=== PATIENT | female | born 2000 | race Caucasian/White ===

== ENCOUNTER 2023-07-06 08:53 | Emergency (ER) | payer MEDICAID ==
[2023-07-06] MEDS: Take Home: Amoxicillin 875 MG Tab, 2 Tab Pack PO ONE (09:13)
== END 2023-07-06 09:15 | disposition home or self-care (01) ==
LOC: VM.ED 08:53
DX: J02.9 Acute pharyngitis, unspecified (principal)
CPT/HCPCS: 99283; A9270